=== PATIENT | female | born 1985 | race Caucasian/White ===

== ENCOUNTER 2023-04-01 18:40 | Emergency (ER) | payer OTHER, MEDICARE, MEDICAID ==
[~2023-04-01] VITALS: Ht 172.7 cm; Wt 71.8 kg
[2023-04-01 18:42] VITALS: BP 174/105; PULSE 125; RESP 16; O2SAT 95
[2023-04-01] MEDS ORDERED: methylPREDNISolone SOD SUCC 40 MG/ML VL IV ONE ×2 (19:15→19:30)
[2023-04-01] MEDS ORDERED: diphenhdrAMINE HCL 50 MG/1 ML VL IM ONE (19:15)
[2023-04-01] MEDS ORDERED: FAMOTIDINE (10MG/ML) 2ML VL IV ONE (19:15)
[2023-04-01] MEDS ORDERED: methylPREDNISolone SOD SUCC 125 MG/2 ML VL ONE (19:21)
[2023-04-01] MEDS ORDERED: diphenhdrAMINE HCL 50 MG/1 ML VL IV ONE (19:30)
[2023-04-01 22:02] LABS: Basophils # (auto) 0 10 ^3/uL (0-0.2); Basophils % (auto) 0.3 % (0.0-2.0); Eosinophils # (auto) 0 10 ^3/uL (0-0.8); Eosinophils % (auto) 0.3 % (0.0-7.0); Hematocrit 42.9 % (36.0-46.0); Hemoglobin 14.5 g/dL (12.2-16.2); Lymphocytes # (auto) 1.5 10 ^3/uL (0.4-5.4); Lymphocytes % (auto) 15.3 % (10.0-50.0); Mean Corpuscular Hgb Conc. 33.8 g/dL (32.0-36.0); Mean Corpuscular Volume 91.6 fL (80.0-100.0); Monocytes # (auto) 0.3 10 ^3/uL (0-1.3); Monocytes % (auto) 2.7 % (0.0-12.0); Neutrophils # (auto) 7.8 10 ^3/uL (1.6-8.6); Neutrophils % (auto) 81.4 % (37.0-80.0); Nucleated Red Blood Cells % 0.1 %; Red Blood Cells 4.69 10^6/uL (4.0-5.20); Red Cell Distribution Width 13.1 % (11.8-14.3); White Blood Cell 9.6 10^3/uL (4.4-10.8)
[2023-04-01 22:18] LABS: Alanine Aminotransferase 30 U/L (7-40); Albumin 4.8 g/dL (3.2-4.8); Alkaline Phosphatase 99 U/L (46-116); Anion Gap 8 (5-15); Aspartate Aminotransferase 13 U/L (13-40); BUN/Creatinine Ratio 8.1 (10.0-20.0); Blood Urea Nitrogen 9 mg/dL (9-23); Carbon Dioxide 24 mmol/L (20-30); Chloride 108 mmol/L (98-107); Glucose 119 mg/dL (74-106); Potassium 4.2 mmol/L (3.5-5.1); Sodium 140 mmol/L (136-145)
[2023-04-01 22:19] LABS: Bilirubin, Total 0.6 mg/dL (0.2-1.0); Total Protein 7.9 g/dL (5.7-8.2)
== END 2023-04-01 22:53 | disposition home or self-care (01) ==
LOC: EDSEX 18:40 → EDBD 18:40 → ER 18:40 → EDUNIT# 18:40 → ER 22:53
DX: T78.40XA Allergy, unspecified, initial encounter (principal); Q79.60 Ehlers-Danlos syndrome, unspecified; Z88.0 Allergy status to penicillin; Y92.89 Other specified places as the place of occurrence of the external cause
CPT/HCPCS: 36415; 80053; 85025; 96374; 96375; 99284; J1200; J2930; J3490